=== PATIENT | female | born 1945 | race Caucasian/White ===

== ENCOUNTER 2017-09-05 09:07 | Outpatient (CLI) | payer MEDICARE ==
[~2017-09-05 09:07] MED LIST: Iopamidol 370 76% 100 ML VIAL ONE
--- NOTE | 2017-09-05 11:24 | CT ---
CTA OF THE NECK WITH CONTRAST: COMPARISON: None. HISTORY: Blockage on ultrasound in the doctor's office on the left side. Subclavian artery syndrome. TECHNIQUE: Multiple contiguous axial images were obtained in a CTA of the neck with contrast. Three-D sagittal and coronal MIP reformats were performed. FINDINGS: Moderate atherosclerotic disease is seen in the aorta. There is a moderate amount of atherosclerotic disease in the ostium of the left subclavian artery. This extends over a length of approximately 1. 5 cm. Mild to moderate atherosclerotic disease is also seen in the right subclavian artery. No sign ificant atherosclerotic disease is seen in the ostia of the common carotid arteries. Mild atherosclerotic disease is seen in the common carotid arteries. There is moderate atherosclerot ic disease in the proximal aspect of the left internal carotid artery. Estimated stenosis is approxi mately 50% per NASCET criteria. This extends over the length of approximately 1.2 cm. Estimated lovely nosis on the right is approximately 10% per NASCET criteria. The distal aspect of the cervical inter nal carotid arteries shows no significant atherosclerotic disease. Both vertebral arteries are patent without significant atherosclerotic disease. IMPRESSION: 1. 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 2. Approximately 50% stenosis of the left internal carotid artery. POS: [facility]
== END 2017-09-05 09:08 | disposition home or self-care (01) ==
LOC: CT 09:07
PROVIDERS: ATTEND Thoracic Surgery (Cardiothoracic Vascular Surgery)
DX: I70.208 Unspecified atherosclerosis of native arteries of extremities, other extremity (principal); I65.22 Occlusion and stenosis of left carotid artery
CPT/HCPCS: 70498; 82565

== ENCOUNTER 2018-12-05 12:00 | Outpatient (CLI) | payer MEDICARE ==
--- NOTE | 2018-12-05 17:07 | MRI ---
MRI OF LEFT SHOULDER PERFORMED WITHOUT CONTRAST ENHANCEMENT: 12/05/18 HISTORY: Severe left shoulder pain for three months. There is mild arthrosis of the AC joint present. There is some minimal tendinosis changes of the infraspinatus tendon and some tendinosis change of th e supraspinatus tendon with a focal tear involving the anterior most insertion of the supraspinatus t endon. This is higher grade tear but is only approximately 6 mm in size. There are tendinosis changes of the biceps tendon associated with this particularly as the biceps tendon enters the bicipital jae ove. There is tendinosis of the subscapularis tendon also present. Increased signal change associated with the superior labrum directly posterior to the attachment of t he biceps tendon. This is not a true fluid density and would suggest this is scarring related to a ch ronic small SLAP type tear. There are some mild arthritic changes of the glenohumeral joint space. There is no significant rotator cuff muscle atrophy present. IMPRESSION: 1. Focal 6 mm far anterior insertional tear of the supraspinatus tendon. This involves greater t hernandez 50% of the thickness of the tendon in this region but it is only 6 mm in size. This does also hav e a lower grade undersurface tear which extends minimally more posteriorly within the fibers. These u ndersurface fibers posterior to the insertional tear are retracted by approximately 9 mm but this onl y involves 30 o 40% of the thickness of the tendon. 2. 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 There is also some moderate tendinosis of the intra-articular portion of the biceps tendon w ith more severe tendinosis changes as the biceps tendon enters the bicipital groove. 3. There is also evidence of some mild capsulitis type changes with some edema change adjacent t o the axillary pouch and some fat stranding in the subcoracoid region. POS: [facility]
== END 2018-12-05 12:01 | disposition home or self-care (01) ==
LOC: SCSMRI 12:00
PROVIDERS: ATTEND Orthopaedic Surgery
DX: M25.512 Pain in left shoulder (principal); M75.102 Unspecified rotator cuff tear or rupture of left shoulder, not specified as traumatic

== ENCOUNTER 2019-01-10 08:12 | Day surgery (SDC) | payer MEDICARE ==
[2019-01-02 12:27] VITALS: BMI 25.7
[2019-01-10 09:00] LABS: #Basophils 0.1 thou/uL (0.0-0.2); #Eosinphils 0.3 thou/uL (0.0-0.7); #Lymphocytes 2.9 thou/uL (1.20-3.40); #Monocytes 1.1 thou/uL (0.11-0.59); #Neutrophils 8.9 thou/uL (1.40-6.50); %Eosinophils 2.2 % (0.0-10.0); %Lymphocytes 22.1 % (21.0-51.0); %Monocytes 8.1 % (0.0-10.0); %Neutrophils 66.7 % (42.0-75.0); Hemoglobin 16.8 g/dL (12.0-16.0); Mean Corpuscular Hemoglobin 30.9 pg (27.0-31.0); Mean Corpuscular Volume 93.6 fL (78.0-98.0); Mean Platelet Volume 9.2 fL (7.4-10.4); Platelet Count 289 thou/uL (130-400); RBC Distribution Width 13.4 % (11.5-14.5); Red Blood Cell (RBC) Count 5.44 mill/uL (4.20-5.40); White Blood Cell (WBC) Count 13.3 thou/uL (4.8-10.8)
[2019-01-10] MEDS ORDERED: ceFAZolin Sodium (SDC) 2 GM/100 ML BAG ONE (09:10)
[2019-01-10 09:14] LABS: INR-International Normal Ratio 0.9; PTT 26.3 SEC (22.9-36.1); Prothrombin Time 12.2 SEC (12.0-14.7)
[2019-01-10] MEDS ORDERED: Fentanyl 100 MCG/2 ML VIAL ONE ×3 (09:14→11:24)
[2019-01-10] MEDS ORDERED: Midazolam HCl 2 mg/2 ml Vial ONE (09:14)
[2019-01-10] MEDS ORDERED: Lidocaine 1% (PF) 30 ML VIAL ONE (09:14)
[2019-01-10 09:26] LABS: Anion Gap 13 mmol/L (10-20); BUN (Urea Nitrogen) 15 mg/dL (9.8-20.1); Calc. Creatinine Clearance 66 mL/min (70-130); Calcium 9.7 mg/dL (7.8-10.44); Carbon Dioxide 24 mmol/L (23-31); Chloride 107 mmol/L (98-107); Estimated GFR-MDRD 65; Glucose 107 mg/dL (83-110); Potassium 4.1 mmol/L (3.5-5.1); Sodium 140 mmol/L (136-145)
[2019-01-10] MEDS ORDERED: Phenylephrine HCL 10 MG/ML VIAL ONE ×2 (09:35→09:39)
[2019-01-10] MEDS ORDERED: Ketorolac Tromethamine 30 MG/ML VIAL IVP PRN (09:42)
[2019-01-10] MEDS ORDERED: Ropivacaine 0.2% 550 ML 550 ML NERVE BLCK SCH (09:42)
[2019-01-10] MEDS ORDERED: HYDROcodone/Acetaminophen 5/325 mg Tablet PO PRN ×2 (09:42)
[2019-01-10] MEDS ORDERED: traMADol HCl 50 MG TAB PO PRN ×2 (09:42)
[2019-01-10] MEDS ORDERED: Promethazine HCl 25 MG/ML VIAL IM PRN (09:42)
[2019-01-10] MEDS ORDERED: Zolpidem Tartrate 5 MG TAB PO PRN (09:42)
[2019-01-10] MEDS ORDERED: Ondansetron PF 4 MG/2 ML Vial IVP PRN (09:42)
[2019-01-10] MEDS ORDERED: Bupivacaine/Epinephrine 0.25% 30 ML VIAL ONE (10:11)
--- NOTE | 2019-01-11 14:23 | OP ---
DATE OF PROCEDURE: 01/10/2019 PREOPERATIVE DIAGNOSIS: High-grade partial-thickness left rotator cuff tear with degenerative labral tearing and capsulitis. POSTOPERATIVE DIAGNOSES: 1. High-grade partial-thickness tear of left rotator cuff. 2. Degenerative labral tear. 3. Impingement. PROCEDURES PERFORMED: 1. Left rotator cuff repair. 2. Limited debridement with decompression/Debridement of labral tears. BOBBIN STRIPPER: None. ANESTHESIOLOGIST: Shine Jones MD ANESTHESIA: The patient received general endotracheal intubation with interscalene block. ESTIMATED BLOOD LOSS: Less than 30 mL. TOURNIQUET TIME: None. ANTIBIOTICS: Ancef 2 g. IMPLANTS: Arthrex 5.5 corkscrew, 4.75 SwiveLock. COMPLICATIONS: None. HISTORY OF PRESENT ILLNESS: Ms. Prado is a 73-year-old female, who presented to me with left shoulder pain. The patient is a smoker. She has pain with overhead activities. The patient's motion was limited to elevation of 60, external rotation of 30. She had weakness and positive [facility] testing. I discussed with her risks and benefits of a left arthroscopic rotator cuff repair to include pain, scar, bleeding, infection , damage to vital structures, decreased range of motion or strength, failure of procedure, continued pain despite surgical intervention, risk of blood clot, shortness of breath, damage to vital structure, loss of life or limb. The patient understood the risks and benefits and desired to undergo a left arthroscopic rotator cuff repair. She understood these risks and benefits and elected to proceed. DESCRIPTION OF PROCEDURE: Time-out was performed designating the patient's left upper extremity as the operative site based on site, consents, and marking. After time-out, posterior working portal was placed, viewed intra-articularly within the joint, subscapularis was intact. There was some degenerative labral fraying. The biceps looked good throughout its course. I was able to pull and sublux, I did not see any significant peel back or damage to the biceps within the groove. The rotator cuff had capsular tearing intra-articularly in-line and actually likely led to tracking out within the joint. There was no full-thickness cartilage defects or loose bodies. I debrided the labrum and then, there was a little bit of synovitis noted. I then moved subacromially and debrided off all the bursa. I took down a small hook of the acromion, which I burred with my 5.5 renee down to smooth edge. After debriding the bursa, I came to the leading edge. There was some frayed edge and found with my probe. Probe fell into hole of the defect. I debrided off that area, placed a 5.5 corkscrew in the footprint, placed 2 stitches anterior and posterior to horizontal mattress stitches and we put them down laterally to compress the cuff down. I cut my sutures. We took final pictures, washed and closed. The patient will be discharged home. I discussed with her instructions about her block. If she had any shortness of breath, she is to follow up with me in about 10 to 14 days. Job ID: [id number] [facility] CENTER[facility]yen
--- NOTE | 2019-01-15 22:39 | EKG ---
Test Reason : PREOP Blood Pressure : / mmHG Vent. 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
== END 2019-01-10 13:15 | disposition home or self-care (01) ==
LOC: SDC 08:12
PROVIDERS: ATTEND Orthopaedic Surgery
PROC: 0LQ24ZZ Repair Left Shoulder Tendon, Percutaneous Endoscopic Approach (ICD-10-PCS; principal; 2019-01-10)
PROC: 0RNK4ZZ Release Left Shoulder Joint, Percutaneous Endoscopic Approach (ICD-10-PCS; 2019-01-10)
PROC: 3E0T3BZ Introduction of Anesthetic Agent into Peripheral Nerves and Plexi, Percutaneous Approach (ICD-10-PCS; 2019-01-10)
DX: M75.112 Incomplete rotator cuff tear or rupture of left shoulder, not specified as traumatic (principal); S43.492A Other sprain of left shoulder joint, initial encounter; M25.812 Other specified joint disorders, left shoulder; M65.812 Other synovitis and tenosynovitis, left shoulder; G89.18 Other acute postprocedural pain; I25.10 Atherosclerotic heart disease of native coronary artery without angina pectoris; I10 Essential (primary) hypertension; E78.00 Pure hypercholesterolemia, unspecified; J44.9 Chronic obstructive pulmonary disease, unspecified; F17.200 Nicotine dependence, unspecified, uncomplicated; Z79.02 Long term (current) use of antithrombotics/antiplatelets; Z79.899 Other long term (current) drug therapy; Z88.0 Allergy status to penicillin; Z88.8 Allergy status to other drugs, medicaments and biological substances
CPT/HCPCS: 29826; 29827; 64416; 80048; 85025; 85610; 85730; 93005; A4306; C1713 ×2; 36415; 93010; J0131; J0690; J2001; J2250; J2370; J2795; J3010

== ENCOUNTER 2019-02-20 13:54 | Outpatient (CLI) | payer MEDICARE ==
--- NOTE | 2019-02-20 15:54 | MMO ---
Bilateral MAMMO Bilat Screen [facility]. CLINICAL HISTORY: Patient is 73 years old and is seen for screening. The patient has the following family history of breast cancer: sister, at age 65. The patient has no personal history of cancer. The patient has a history of right Excisional Biopsy in 1999 - benign. VIEWS: The views performed were: bilateral craniocaudal with tomosynthesis and bilateral mediolateral oblique with tomosynthesis. FILMS COMPARED: The present examination has been compared to prior imaging studies performed at [facility] on 07/07/2010, 02/27/2015 and 08/10/2016, and at [facility] on 10/06/1999. This study has been interpreted with the assistance of computer-aided detection. MAMMOGRAM FINDINGS: There are scattered fibroglandular densities. There are no suspicious masses, suspicious calcifications, or new areas of architectural distortion. IMPRESSION: THERE IS NO MAMMOGRAPHIC EVIDENCE OF MALIGNANCY. A ROUTINE FOLLOW-UP MAMMOGRAM IN 1 YEAR IS RECOMMENDED. THE RESULTS OF THIS EXAM WERE SENT TO THE PATIENT. ACR BI-RADS Category 1 - Negative MAMMOGRAPHY NOTE: 1. A negative mammogram report should not delay a biopsy if a dominant of clinically suspicious mass is present. 2. Approximately 10% to 15% of breast cancers are not detected by mammography. 3. Adenosis and dense breasts may obscure an underlying neoplasm. Reported by: SAMUEL FINN MD Electonically Signed: [id number]
== END 2019-02-20 13:55 | disposition home or self-care (01) ==
LOC: BICMAMMO 13:54
PROVIDERS: ATTEND Family Medicine
DX: Z12.31 Encounter for screening mammogram for malignant neoplasm of breast (principal); Z80.3 Family history of malignant neoplasm of breast; Z91.89 Other specified personal risk factors, not elsewhere classified
CPT/HCPCS: 77063; 77067

== ENCOUNTER 2020-03-23 08:38 | Outpatient (CLI) | payer MEDICARE ==
--- NOTE | 2020-03-23 09:43 | RAD ---
CHEST 2 VIEWS: Date: 03/23/2020 HISTORY: COPD. COMPARISON: Radiograph from 2016. FINDINGS: Large mass superior segment right lower lobe. No pneumothorax. No effusion. No acute osseous abnormal ity. IMPRESSION: Large mass superior segment right lower lobe. CT chest recommended. CODE T. CODE LN. Message was sent to Dr. Spring via Mobile[employer]. CODE CR. POS: HOME
== END 2020-03-23 08:39 | disposition home or self-care (01) ==
LOC: BICRAD 08:38
PROVIDERS: ATTEND Family Medicine
DX: J44.9 Chronic obstructive pulmonary disease, unspecified (principal); R91.8 Other nonspecific abnormal finding of lung field
CPT/HCPCS: 36415; 71046; 80053; 84439; 84443; 85025

== ENCOUNTER 2020-03-27 14:00 | Outpatient (CLI) | payer MEDICARE ==
--- NOTE | 2020-03-27 15:24 | CT ---
CT CHEST WITHOUT CONTRAST CLINICAL INDICATION: Lung mass seen on recent chest x-ray. History of COPD. COMPARISON: Chest x-ray on 03/23/2020 FINDINGS: Aorta: Lack of intravenous contrast limits evaluation of vascular structures, but there are dense vas cular calcifications seen in the thoracic and visualized proximal abdominal aorta as well as dense vascular calcifications in the coronary arteries. Lungs: As noted on recent chest x-ray, there is a large mass seen in the right lower lobe posterior t o the right hilum with greatest axial dimension of 6.7 cm AP x5.3 cm transverse. This mass extends into the right hilar region. There are several small satellite nodules closely adjacent to this mass. There is a central area of cavitation identified. This corresponds to the finding on chest x-ray. A 1.3 cm pleural-based nodule is seen adjacent to the posterior mediastinum in a subcarinal location. There is also a contralateral enlarged pulmonary nodule seen in the medial aspect left upper lobe adjacent to the hilum measuring 1.3 cm. There are scattered irregular linear and slight groundglass densities seen within the bilateral upper and lower lobes which are difficult to further characterize on this exam. Findings could be related to areas of scarring and/or atypical infectious or inflammatory process. Neoplastic process w ould be difficult to entirely exclude given the appearance of a few of these areas of groundglass density. Continued follow-up is recommended. Mild emphysematous changes are seen with the lungs bilaterally. By apical pleural and parenchymal sca rring is present. No pleural effusion is identified. Mediastinum: Limited evaluation secondary to the lack of intravenous contrast. However, there is an e nlarged subcarinal lymph node present measuring 2 cm in short axis dimension. Additional enlarged and increased number of paratracheal lymph nodes are present. Evaluation for hilar lymphadenopathy is limited due to lack of intravenous contrast. Thyroid gland: Normal CT appearance. Osseous structures: Degenerative changes are seen in the spine, but no suspicious lytic or sclerotic osseous lesions are identified. Chest wall: No abnormality visualized. Upper abdomen: There is an enlarged left adrenal mass measuring 2.6 cm. This does not demonstrated an attenuation coefficient on this nonenhanced CT scan exam suggestive of an adrenal adenoma. Metastatic lesion is diagnosis of exclusion. However additional imaging with CT abdomen with washout imaging is suggested to exclude the possibility of an atypical adrenal adenoma. No enlarged lymph nodes are seen in the visualized upper abdomen IMPRESSION: 1. Large necrotic right lower lobe mass with multiple adjacent satellite nodules in the right lower l obe. 2. Pulmonary nodule left upper lobe adjacent to the hilum measuring 1.3 cm. 3. Scattered linear irregular densities and groundglass densities within the bilateral upper and lowe r lobes which are overall nonspecific. While findings could be related to scarring, this could be related to atypical infectious or inflammatory process. Neoplastic process associated with groundglas s areas of attenuation could not be entirely excluded. 4. Mediastinal lymphadenopathy. 5. Left adrenal nodule/mass which cannot be characterized as a simple adrenal adenoma. A follow-up CT scan with IV contrast including washout imaging versus MRI is recommended for further characterization.
== END 2020-03-27 14:01 | disposition home or self-care (01) ==
LOC: BICCT 14:00
PROVIDERS: ATTEND Family Medicine
DX: R91.8 Other nonspecific abnormal finding of lung field (principal); J98.4 Other disorders of lung; E27.8 Other specified disorders of adrenal gland; R59.0 Localized enlarged lymph nodes
CPT/HCPCS: 71250

== ENCOUNTER 2020-08-27 07:57 | Inpatient (IN) | payer MEDICARE ==
[2020-08-27] MEDS ORDERED: Albuterol 200 PUFF (6.7GM INHALER) ONE (08:17)
[2020-08-27 08:35] LABS: #Basophils 0.1 thou/uL (0.0-0.2); #Eosinphils 0.4 thou/uL (0.0-0.7); #Monocytes 1.6 thou/uL (0.11-0.59); #Neutrophils 12.5 thou/uL (1.40-6.50); %Basophils 0.5 % (0.0-1.0); %Eosinophils 2.6 % (0.0-10.0); %Monocytes 9.8 % (0.0-10.0); %Neutrophils 75.1 % (42.0-75.0); Hemoglobin 12.9 g/dL (12.0-16.0); Mean Corpuscular HGB CONC 32.5 g/dL (32.0-36.0); Mean Corpuscular Hemoglobin 29.9 pg (27.0-31.0); Mean Corpuscular Volume 91.7 fL (78.0-98.0); Mean Platelet Volume 6.3 fL (7.4-10.4); Platelet Count 793 thou/uL (130-400); Red Blood Cell (RBC) Count 4.33 mill/uL (4.20-5.40); White Blood Cell (WBC) Count 16.7 thou/uL (4.8-10.8)
[2020-08-27] MEDS ORDERED: Dexamethasone 10 MG/ML VIAL ONE (08:39)
[2020-08-27 09:00] LABS: ALT (SGPT) 15 U/L (8-55); AST (SGOT) 17 U/L (5-34); Albumin 3.3 g/dL (3.4-4.8); Alkaline Phosphatase 81 U/L (40-110); Anion Gap 14 mmol/L (10-20); BUN (Urea Nitrogen) 12 mg/dL (9.8-20.1); Bilirubin, Total 0.2 mg/dL (0.2-1.2); Calc. Creatinine Clearance 0 mL/min (70-130); Calcium 9.3 mg/dL (7.8-10.44); Carbon Dioxide 26 mmol/L (23-31); Chloride 90 mmol/L (98-107); Globulin 3.4 g/dL (2.4-3.5); Glucose 107 mg/dL (83-110); Potassium 5.3 mmol/L (3.5-5.1); Protein, Total 6.7 g/dL (5.8-8.1); Sodium 125 mmol/L (136-145)
[2020-08-27] MEDS ORDERED: Lidocaine 1% (PF) 30 ML VIAL ONE (09:12)
[2020-08-27] MEDS ORDERED: cefTRIAXone\\ROCEPHIN 1 GM VIAL ONE (09:25)
[2020-08-27] MEDS ORDERED: Ketorolac Tromethamine 30 MG/ML VIAL ONE (09:25)
[2020-08-27 09:28] LABS: INR-International Normal Ratio 0.9; PTT 32.9 sec (22.9-36.1); Prothrombin Time 12.8 sec (12.0-14.7)
[2020-08-27] MEDS ORDERED: Morphine 4 MG/ML VIAL ONE (09:29)
[2020-08-27 09:47] LABS: SARS-CoV-2 NAA Rapid Test Not Detected (NotDetected)
[2020-08-27] MEDS ORDERED: Azithromycin 500 MG VIAL ONE (10:23)
[2020-08-27 10:57] LABS: Bilirubin Negative (Negative); Blood, Urine Negative (Negative); Clarity Clear (Clear); Glucose, Urine (Dipstick) Normal (Negative); Ketone, Urine Negative (Negative); Leukocyte Negative Leu/uL (Negative); Nitrite Negative (Negative); Protein, Urine (Dipstick) Negative (Neg-Trace); Specific Gravity, Urine 1.014 (1.002-1.036); Urobilinogen Normal mg/dL (Less than 2); pH, Urine 6.5 (5.0-9.0)
[2020-08-27 12:44] LABS: Anion Gap 14 mmol/L (10-20); BUN (Urea Nitrogen) 11 mg/dL (9.8-20.1); Calc. Creatinine Clearance 0 mL/min (70-130); Calcium 8.4 mg/dL (7.8-10.44); Carbon Dioxide 22 mmol/L (23-31); Chloride 97 mmol/L (98-107); Glucose 133 mg/dL (83-110); Potassium 5.1 mmol/L (3.5-5.1); Sodium 128 mmol/L (136-145)
[2020-08-27 13:25] LABS: Fluid, pH - Pleural Fld 7.17 (7.60 - 7.66)
[2020-08-27] MEDS ORDERED: Iopamidol-370 76% 500 ML 1 ML ONE (13:47)
[2020-08-27 16:56] VITALS: BMI 18.3
[2020-08-27 17:21] LABS: Pleural Fluid, Amylase 97 U/L (Not Available); Pleural Fluid, Glucose Less than 20 mg/dL; Pleural Fluid, LDH 3323 U/L (Not Available); Pleural Fluid, Protein 5.3 g/dL
[2020-08-27] MEDS: HYDROcodone/Acetaminophen 5/325 mg Tablet PO PRN ×2 (17:29→21:47)
[2020-08-27 17:46] LABS: RBC Count-Automated (BF) 68197 /cu.mm; WBC/Nucleated-Auto (BF) 470 uL
[2020-08-27 18:07] LABS: BF Color Red; Body Fluid Source Thoracentesis Fluid; Clarity Cloudy/Turbid (Clear); Tube # EDTA
[2020-08-27 18:48] LABS: BF Segmented Neutrophils 45 %; Cell Count Non Hematic 6 %; Eosinophils 12 %; Lymphocytes 36 %
[2020-08-27 20:04] LABS: Anion Gap 13 mmol/L (10-20); BUN (Urea Nitrogen) 16 mg/dL (9.8-20.1); Calc. Creatinine Clearance 51 mL/min (70-130); Calcium 8.1 mg/dL (7.8-10.44); Carbon Dioxide 23 mmol/L (23-31); Chloride 98 mmol/L (98-107); Glucose 221 mg/dL (83-110); Potassium 4.6 mmol/L (3.5-5.1); Sodium 129 mmol/L (136-145)
[2020-08-27 20:06] LABS: Anion Gap 14 mmol/L (10-20); BUN (Urea Nitrogen) 16 mg/dL (9.8-20.1); Calc. Creatinine Clearance 50 mL/min (70-130); Calcium 8.1 mg/dL (7.8-10.44); Carbon Dioxide 22 mmol/L (23-31); Chloride 98 mmol/L (98-107); Glucose 217 mg/dL (83-110); Potassium 4.8 mmol/L (3.5-5.1); Sodium 129 mmol/L (136-145)
[2020-08-27] MEDS: Famotidine 20 MG TAB PO SCH (20:37)
[2020-08-27] MEDS ORDERED: Mometasone 100 MCG/Formoterol 5 MCG 120 PUFF INHALER INH PRN (21:09)
[2020-08-27] MEDS ORDERED: diphenhydrAMINE 25 MG CAP PO SCH (22:00)
[2020-08-27] MEDS ORDERED: Zolpidem Tartrate 5 MG TAB PO SCH (22:00)
[2020-08-28 00:21] LABS: Anion Gap 9 mmol/L (10-20); BUN (Urea Nitrogen) 17 mg/dL (9.8-20.1); Calc. Creatinine Clearance 60 mL/min (70-130); Calcium 8.2 mg/dL (7.8-10.44); Carbon Dioxide 26 mmol/L (23-31); Chloride 97 mmol/L (98-107); Glucose 99 mg/dL (83-110); Potassium 4.9 mmol/L (3.5-5.1); Sodium 127 mmol/L (136-145)
[2020-08-28] MEDS ORDERED: HOPS PO SCH (09:00)
[2020-08-28] MEDS ORDERED: BERBERINE PO SCH (09:00)
[2020-08-28] MEDS ORDERED: VIT D3 VIT K PO SCH (09:00)
[2020-08-28] MEDS: Atorvastatin Calcium 10 MG TAB PO SCH (09:02)
[2020-08-28] MEDS: Enoxaparin Sodium 30 MG/0.3 ML SYRINGE SC SCH (10:14)
[2020-08-28] MEDS: Famotidine 20 MG TAB PO SCH ×2 (10:33→21:29)
[2020-08-28] MEDS: Sodium Chloride 1 GM TAB PO SCH ×2 (11:08→21:29)
[2020-08-28] MEDS ORDERED: Midazolam HCl 2 mg/2 ml Vial ONE (12:53)
[2020-08-28] MEDS ORDERED: Ketamine 50 MG/ML (10ML VIAL) ONE (12:53)
[2020-08-28] MEDS ORDERED: Lidocaine 1% (PF) 30 ML VIAL ONE (13:03)
[2020-08-28] MEDS ORDERED: Lidocaine 1% PF 5 ML VIAL ONE (13:16)
[2020-08-28] MEDS ORDERED: PROPOFOL 200 MG/20 ML VIAL ONE (13:16)
[2020-08-28] MEDS ORDERED: Fentanyl 100 MCG/2 ML VIAL ONE (13:56)
[2020-08-28] MEDS ORDERED: Promethazine HCl 25 MG/ML VIAL IM PRN (13:58)
[2020-08-28] MEDS ORDERED: Promethazine HCl 25 MG/ML VIAL SLOW IVP PRN (13:58)
[2020-08-28] MEDS ORDERED: Ondansetron HCl/PF 4 MG/2 ML Vial IVP PRN (13:58)
[2020-08-28] MEDS: HYDROcodone/Acetaminophen 5/325 mg Tablet PO PRN ×2 (16:41→21:30)
[2020-08-28] MEDS ORDERED: Zolpidem Tartrate 5 MG TAB PO SCH (21:00)
[2020-08-28] MEDS: Furosemide 20 MG/2 ML VIAL SLOW IVP SCH (21:55)
[2020-08-29 08:20] LABS: #Basophils 0.1 thou/uL (0.0-0.2); #Eosinphils 0.5 thou/uL (0.0-0.7); #Lymphocytes 2.6 thou/uL (1.20-3.40); #Neutrophils 11.5 thou/uL (1.40-6.50); %Basophils 0.9 % (0.0-1.0); %Eosinophils 3.3 % (0.0-10.0); %Lymphocytes 15.2 % (21.0-51.0); %Monocytes 12.1 % (0.0-10.0); %Neutrophils 68.6 % (42.0-75.0); Mean Corpuscular HGB CONC 32.2 g/dL (32.0-36.0); Mean Corpuscular Hemoglobin 29.8 pg (27.0-31.0); Mean Corpuscular Volume 92.7 fL (78.0-98.0); Mean Platelet Volume 6.2 fL (7.4-10.4); Platelet Count 730 thou/uL (130-400); RBC Distribution Width 12.1 % (11.5-14.5); Red Blood Cell (RBC) Count 3.68 mill/uL (4.20-5.40); White Blood Cell (WBC) Count 16.8 thou/uL (4.8-10.8)
[2020-08-29] MEDS: Furosemide 20 MG/2 ML VIAL SLOW IVP SCH (08:22)
[2020-08-29] MEDS: Sodium Chloride 1 GM TAB PO SCH (08:22)
[2020-08-29] MEDS: Famotidine 20 MG TAB PO SCH (08:22)
[2020-08-29] MEDS: Atorvastatin Calcium 10 MG TAB PO SCH (08:22)
[2020-08-29] MEDS: Enoxaparin Sodium 30 MG/0.3 ML SYRINGE SC SCH (08:22)
[2020-08-29 08:31] LABS: Anion Gap 14 mmol/L (10-20); BUN (Urea Nitrogen) 13 mg/dL (9.8-20.1); Calc. Creatinine Clearance 62 mL/min (70-130); Calcium 8.3 mg/dL (7.8-10.44); Carbon Dioxide 22 mmol/L (23-31); Chloride 100 mmol/L (98-107); Glucose 82 mg/dL (83-110); Potassium 4.7 mmol/L (3.5-5.1); Sodium 131 mmol/L (136-145)
[2020-08-29 15:57] VITALS: BP 97/57; TEMP 97.9
[2020-09-02 15:13] LABS: Fungus Stain Final report (.)
[2020-09-28 10:13] LABS: Fungus Culture Final report (.)
== END 2020-08-29 17:45 | disposition hospice, home (50) | DRG 180 ==
LOC: ERS 07:57 → ERHOLD 12:27 → SJJU 15:04
PROVIDERS: ADMIT Internal Medicine; ATTEND Internal Medicine
PROC: 0W9930Z Drainage of Right Pleural Cavity with Drainage Device, Percutaneous Approach (ICD-10-PCS; principal; 2020-08-28)
DX: C34.90 Malignant neoplasm of unspecified part of unspecified bronchus or lung (principal); J96.01 Acute respiratory failure with hypoxia; J91.0 Malignant pleural effusion; E22.2 Syndrome of inappropriate secretion of antidiuretic hormone; I10 Essential (primary) hypertension; E78.5 Hyperlipidemia, unspecified; I25.10 Atherosclerotic heart disease of native coronary artery without angina pectoris; F17.200 Nicotine dependence, unspecified, uncomplicated; J44.9 Chronic obstructive pulmonary disease, unspecified; I73.9 Peripheral vascular disease, unspecified; Z20.822 Contact with and (suspected) exposure to COVID-19; E87.5 Hyperkalemia; Z88.0 Allergy status to penicillin; Z79.02 Long term (current) use of antithrombotics/antiplatelets
CPT/HCPCS: 0240U; 32555; 36415; 71045; 71275; 80048; 80053; 81003; 81479; 82150; 82945; 83605; 83615; 83880; 83930; 83935; 83986; 84157; 84300; 84484; 85025; 85060; 85610; 85730; 87040; 87070; 87116; 87205; 87206; 88112; 88305; 88341; 88342; 88360; 88377; 89051; 93005; 94640; 94664; 94760; 96365; 96367; 96375; J0456; J0696; J1100; J1650; J1885; J1940; J2001; J2250; J2270; J2704; J3010; J7620; Q0163; Q9967

== ENCOUNTER 2020-09-23 16:17 | Observation (INO) | payer MEDICARE ==
[2020-09-23] MEDS ORDERED: Morphine 4 MG/ML VIAL ONE ×2 (16:40→20:36)
[2020-09-23] MEDS ORDERED: Albuterol Sulfate 2.5 mg/3 ml Neb ONE (18:54)
[2020-09-23] MEDS ORDERED: Ondansetron ODT 4 MG TAB PO PRN (21:10)
[2020-09-23] MEDS ORDERED: Loperamide HCl 2 MG CAP PO PRN ×2 (21:10)
[2020-09-23] MEDS ORDERED: Acetaminophen 325 MG TAB PO PRN (21:10)
[2020-09-23] MEDS ORDERED: Ondansetron PF 4 MG/2 ML Vial IVP PRN (21:10)
[2020-09-23] MEDS ORDERED: HYDROcodone/Acetaminophen 7.5/325 mg Tablet PO PRN (21:10)
[2020-09-23 22:28] VITALS: BMI 17.6
[2020-09-23] MEDS: Morphine 4 MG/ML VIAL SLOW IVP PRN (23:42)
[2020-09-24] MEDS: Morphine 4 MG/ML VIAL SLOW IVP PRN (04:50)
[2020-09-24 05:04] LABS: SARS-CoV-2 PCR by NAA Not Detected (NotDetected)
[2020-09-24 09:48] VITALS: BP 102/50; TEMP 99.6
== END 2020-09-24 16:15 | disposition hospice, inpatient (51) ==
LOC: ERS 16:17 → ONC 19:57
PROVIDERS: ADMIT Student in an Organized Health Care Education/Training Program; ATTEND Hospitalist
DX: G93.40 Encephalopathy, unspecified (principal); C34.90 Malignant neoplasm of unspecified part of unspecified bronchus or lung; C79.9 Secondary malignant neoplasm of unspecified site; F17.210 Nicotine dependence, cigarettes, uncomplicated; J96.01 Acute respiratory failure with hypoxia; E78.5 Hyperlipidemia, unspecified; I10 Essential (primary) hypertension; J44.9 Chronic obstructive pulmonary disease, unspecified; F03.90 Unspecified dementia, unspecified severity, without behavioral disturbance, psychotic disturbance, mood disturbance, and anxiety; E44.0 Moderate protein-calorie malnutrition; Z68.1 Body mass index [BMI] 19.9 or less, adult; Z66 Do not resuscitate; Z79.02 Long term (current) use of antithrombotics/antiplatelets; Z79.899 Other long term (current) drug therapy; Z88.0 Allergy status to penicillin; Z20.822 Contact with and (suspected) exposure to COVID-19
CPT/HCPCS: 96374; 96376 ×2; 99285; G0378 ×3; U0003; U0005; 87635; J2270; J7611; Q0162